=== PATIENT | female | born 1965 | race Caucasian/White ===

== ENCOUNTER 2020-12-15 09:19 | Outpatient (CLI) | payer BC ==
[2020-12-15 10:15] VITALS: BP 108/64; PULSE 73; TEMP 97.9
[2020-12-15 10:30] VITALS: BP 121/70; PULSE 79; TEMP 97.9
[2020-12-15 10:45] VITALS: BP 114/74; PULSE 81; TEMP 97.9
[2020-12-15] MEDS ORDERED: VIVELLE-DO0.05 MG/24 TD (10:53)
[2020-12-15 11:00] VITALS: BP 129/64; PULSE 70; TEMP 97.9
[2020-12-15 11:15] VITALS: BP 120/72; PULSE 66; TEMP 97.9
[2020-12-15 11:30] VITALS: BP 115/75; PULSE 79; TEMP 97.9
== END 2020-12-15 11:40 | disposition home or self-care (01) ==
LOC: EUO 09:19
DX: U07.1 COVID-19 (principal); E66.9 Obesity, unspecified
CPT/HCPCS: Q0244

== ENCOUNTER → 2021-04-12 | Outpatient (CLI) | payer BC ==
[~2021-04-12] MED LIST: VIVELLE-DO0.05 MG/24 TD
== END ==
LOC: COL.PUL 04-05 08:00
DX: R06.02 Shortness of breath (principal); Z87.891 Personal history of nicotine dependence

== ENCOUNTER → 2021-07-22 | Outpatient (CLI) | payer BC | LOC: COL.RAD 07-19 14:30 | DX: K21.9 Gastro-esophageal reflux disease without esophagitis (principal); K25.7 Chronic gastric ulcer without hemorrhage or perforation ==

== ENCOUNTER → 2022-08-04 | Outpatient (CLI) | payer BC | LOC: MC.RAD 10:30 | DX: Z12.31 Encounter for screening mammogram for malignant neoplasm of breast (principal) ==

== ENCOUNTER 2023-09-16 11:57 | Emergency (ER) | payer BC ==
[~2023-09-16] VITALS: Ht 167.6 cm; Wt 81.8 kg
[2023-09-16 12:08] VITALS: TEMP 98.1
[2023-09-16] MEDS ORDERED: Ondansetron 4 MG/2 ML VIAL IV ONE (14:00)
[2023-09-16] MEDS ORDERED: Morphine 4 MG/ML VIAL IV ONE (14:00)
[2023-09-16 14:26] LABS: BASO % 0.4 % (0.0-2.0); EOS # 0.3 K/mm3 (0.0-0.7); EOS % 3.3 % (0.0-4.0); GRAN % 60.7 % (42.2-75.2); HEMATOCRIT 44.6 % (37.0-47.0); HEMOGLOBIN 14.8 g/dl (12.5-16.0); LYMPH # 2.3 K/mm3 (1.2-3.4); LYMPH % 28.3 % (20.0-51.0); MEAN CELL VOLUME 86 fl (80.0-100.0); MEAN CORPUSCULAR HEMOGLOBIN 29 pg (27-31); MEAN CORPUSCULAR HGB CONC 33 g/dl (33.0-37.0); MEAN PLATELET VOLUME 10.1 fl (7.4-10.4); MONO # 0.6 K/mm3 (0.1-0.6); MONO % 7.2 % (1.7-9.3); PLATELET COUNT 223 K/mm3 (130-400); RED BLOOD COUNT 5.17 M/mm3 (4.10-5.30); REDCELL DISTRIBUTION WIDTH-CV 15.8 % (11.5-14.5)
[2023-09-16 14:59] LABS: ALBUMIN 4.1 g/dL (3.5-5.0); BILIRUBIN,TOTAL 0.7 mg/dL (0.2-1.2); CALCIUM 9.5 mg/dL (8.4-10.2); CREATININE, serum 0.77 mg/dL (0.57-1.11); POTASSIUM 3.5 mEq/L (3.5-4.5); TOTAL PROTEIN 7.8 g/dl (6.2-8.1)
[2023-09-16] MEDS ORDERED: Iohexol 300 - 100 ML VIAL IV ONE (15:09)
[2023-09-16] MEDS ORDERED: NS 100 ML IV ONE (15:14)
[2023-09-16] MEDS ORDERED: ULTRAM 50MG TAB50 MG PO (15:43)
[2023-09-16] MEDS ORDERED: Ketorolac 15 MG/ML VIAL IV ONE (15:45)
[2023-09-16 16:17] VITALS: BP 135/73; PULSE 56
== END 2023-09-16 16:17 | disposition home or self-care (01) ==
LOC: COL.ER 11:57
PROVIDERS: Nurse Practitioner
DX: S20.212A Contusion of left front wall of thorax, initial encounter (principal); W18.30XA Fall on same level, unspecified, initial encounter
CPT/HCPCS: J1885; J2270; J2405; Q9967